=== PATIENT | female | born 1990 | race Caucasian/White ===

== ENCOUNTER 2018-07-13 21:00 | Emergency (ER) | payer OTHER, SELFPAY ==
[2018-07-13 21:22] LABS: Pregnancy Test - Urine (BHCG) Negative (Negative); Pregu Control Background? CLEAR/WHITE (CLR/WHITE); Pregu Control Bar Appear? YES (CONTROL BAR); Specific Gravity 1.025 (1.002-1.036)
[2018-07-13 21:23] LABS: Bilirubin Negative (Negative); Blood, Urine Negative (Negative); Clarity Slightly Cloudy (Clear); Glucose, Urine (Dipstick) Negative (Negative); Leukocyte Negative (Negative); Nitrite Negative (Negative); Protein, Urine (Dipstick) Negative (Neg-Trace); Specific Gravity, Urine 1.025 (1.005-1.030); Urobilinogen 0.2 mg/dL (0.2-1.0); pH, Urine 5.5 (5.0-9.0)
[2018-07-13] MEDS ORDERED: Metoclopramide HCl 10 MG/2 ML VIAL ONE (21:35)
[2018-07-13] MEDS ORDERED: Ketorolac Tromethamine 30 MG/ML VIAL ONE (21:37)
[2018-07-13 21:44] LABS: #Basophils 0.1 thou/uL (0.0-0.2); #Eosinphils 0.1 thou/uL (0.0-0.7); #Lymphocytes 3.4 thou/uL (1.20-3.40); #Monocytes 0.5 thou/uL (0.11-0.59); #Neutrophils 5.1 thou/uL (1.40-6.50); %Basophils 1.1 % (0.0-1.0); %Eosinophils 1.1 % (0.0-10.0); %Lymphocytes 36.8 % (21.0-51.0); %Monocytes 5.2 % (0.0-10.0); %Neutrophils 55.8 % (42.0-75.0); Hemoglobin 13.7 g/dL (12.0-16.0); Mean Corpuscular HGB CONC 32.7 g/dL (32.0-36.0); Mean Corpuscular Hemoglobin 26.7 pg (27.0-31.0); Mean Corpuscular Volume 81.5 fL (78.0-98.0); Mean Platelet Volume 11.1 fL (7.4-10.4); Platelet Count 192 thou/uL (130-400); RBC Distribution Width 13.3 % (11.5-14.5); Red Blood Cell (RBC) Count 5.15 mill/uL (4.20-5.40); White Blood Cell (WBC) Count 9.2 thou/uL (4.8-10.8)
[2018-07-13 22:04] LABS: ALT (SGPT) 16 U/L (8-55); AST (SGOT) 22 U/L (5-34); Albumin 4.8 g/dL (3.5-5.0); Alkaline Phosphatase 68 U/L (40-150); Anion Gap 16 mmol/L (10-20); BUN (Urea Nitrogen) 9 mg/dL (7.0-18.7); Bilirubin, Total 0.5 mg/dL (0.2-1.2); Calc. Creatinine Clearance 0 mL/min (70-130); Carbon Dioxide 21 mmol/L (22-29); Chloride 106 mmol/L (98-107); Estimated GFR-MDRD Greater than 90; Globulin 3.4 g/dL (2.4-3.5); Glucose 82 mg/dL (70-105); Lipase 25 U/L (8-78); Potassium 3.6 mmol/L (3.5-5.1); Protein, Total 8.2 g/dL (6.0-8.3); Sodium 139 mmol/L (136-145)
--- NOTE | 2018-07-13 23:25 | ULT ---
PELVIC ULTRASOUND: 07/13/18 HISTORY: Right sided pelvic pain. Real time imaging of the pelvis was performed transabdominally as well as with an endovaginal probe. The uterus measures 7.9 cm in length. The endometrium is 3 to 4 mm. There is an approximately 5.5 cm right ovarian cyst present. Left ovary is normal in appearance. DOPPLER EVALUATION WITH SPECTRAL ANALYSIS: Normal flow is shown to both ovaries. IMPRESSION: 5.5 cm right ovarian cyst. POS: [facility]ANDA
[2018-07-16 05:30] LABS: Chlamydia by PCR Not Detected (NotDetected); GC by PCR Not Detected (NotDetected)
== END 2018-07-13 23:31 | disposition home or self-care (01) ==
LOC: SCSER 21:00
DX: N83.201 Unspecified ovarian cyst, right side (principal); F17.210 Nicotine dependence, cigarettes, uncomplicated; Z79.899 Other long term (current) drug therapy
CPT/HCPCS: 76856; 80053; 81003; 81025; 83690; 85025; 87480; 87491; 87510; 87591; 87660; 96361; 96372; 96374; J1885; J2765

== ENCOUNTER 2020-04-15 07:38 | Emergency (ER) | payer BC ==
[2020-04-15 08:26] LABS: #Eosinphils 0.1 thou/uL (0.0-0.7); #Lymphocytes 1.5 thou/uL (1.20-3.40); #Monocytes 0.5 thou/uL (0.11-0.59); #Neutrophils 7.4 thou/uL (1.40-6.50); %Basophils 0.3 % (0.0-1.0); %Eosinophils 0.9 % (0.0-10.0); %Lymphocytes 16.2 % (21.0-51.0); %Neutrophils 77.7 % (42.0-75.0); Hemoglobin 10.1 g/dL (12.0-16.0); Mean Corpuscular HGB CONC 33.2 g/dL (32.0-36.0); Mean Corpuscular Hemoglobin 26.4 pg (27.0-31.0); Mean Corpuscular Volume 79.4 fL (78.0-98.0); Mean Platelet Volume 9.6 fL (7.4-10.4); Platelet Count 190 thou/uL (130-400); RBC Distribution Width 13.7 % (11.5-14.5); Red Blood Cell (RBC) Count 3.82 mill/uL (4.20-5.40); White Blood Cell (WBC) Count 9.5 thou/uL (4.8-10.8)
[2020-04-15] MEDS ORDERED: Albuterol 200 PUFF (6.7GM INHALER) ONE (08:41)
[2020-04-15] MEDS ORDERED: Acetaminophen 500 MG TAB ONE (08:42)
[2020-04-15] MEDS ORDERED: Dexamethasone 10 MG/ML VIAL ONE (08:42)
[2020-04-15 08:49] LABS: ALT (SGPT) Less than 7 U/L (8-55); AST (SGOT) 14 U/L (5-34); Albumin 3.4 g/dL (3.5-5.0); Alkaline Phosphatase 75 U/L (40-110); Anion Gap 15 mmol/L (10-20); BUN (Urea Nitrogen) 7 mg/dL (7.0-18.7); Bilirubin, Total 0.4 mg/dL (0.2-1.2); Calc. Creatinine Clearance 0 mL/min (70-130); Calcium 8.4 mg/dL (7.8-10.44); Carbon Dioxide 18 mmol/L (22-29); Chloride 106 mmol/L (98-107); Estimated GFR-MDRD Greater than 90; Globulin 3.3 g/dL (2.4-3.5); Glucose 74 mg/dL (70-105); Potassium 3.4 mmol/L (3.5-5.1); Protein, Total 6.7 g/dL (6.0-8.3); Sodium 136 mmol/L (136-145)
--- NOTE | 2020-04-15 08:52 | RAD ---
Chest one view HISTORY: Dyspnea. COMPARISON: 12/01/2013. FINDINGS: Cardiac silhouette and pulmonary vasculature are unremarkable. Mediastinum is midline. No c onfluent airspace consolidation or evidence of pneumothorax. IMPRESSION : No abnormalities are demonstrated.
[2020-04-15 18:06] LABS: SARS-CoV-2 MS2 Positive; SARS-CoV-2 N Gene Negative; SARS-CoV-2 S Gene Negative; SARS-CoV-2 by NAA Not Detected (NotDetected); SARS-CoV-2 orf1ab Negative
== END 2020-04-15 09:48 | disposition home or self-care (01) ==
LOC: ERS 07:38
DX: O99.513 Diseases of the respiratory system complicating pregnancy, third trimester (principal); J02.9 Acute pharyngitis, unspecified; O99.333 Smoking (tobacco) complicating pregnancy, third trimester; F17.210 Nicotine dependence, cigarettes, uncomplicated; Z20.828 Contact with and (suspected) exposure to other viral communicable diseases
CPT/HCPCS: 71045; 80053; 84484; 85025; 87635; 96372; J1100; U0003

== ENCOUNTER 2020-11-10 13:09 | Outpatient (CLI) | payer BC | END 2020-11-10 13:10 | disposition home or self-care (01) | LOC: BICRAD 13:09 | PROVIDERS: ATTEND Physician Assistant | DX: M54.2 Cervicalgia (principal); M54.5 Low back pain | CPT/HCPCS: 72040; 72100 ==

== ENCOUNTER 2021-04-29 14:02 | Outpatient (CLI) | payer BC | END 2021-04-29 14:03 | disposition home or self-care (01) | LOC: SCSMRI 14:02 | PROVIDERS: ATTEND Physician Assistant | DX: S93.402D Sprain of unspecified ligament of left ankle, subsequent encounter (principal); S92.255D Nondisplaced fracture of navicular [scaphoid] of left foot, subsequent encounter for fracture with routine healing; S90.32XD Contusion of left foot, subsequent encounter ==